=== PATIENT | male | born 1975 ===

== ENCOUNTER → 2017-03-21 07:21 | Outpatient (CLI) | payer OTHER | END | disposition home or self-care (01) | LOC: LAB 07:21 | DX: I11.9 Hypertensive heart disease without heart failure (principal); M62.81 Muscle weakness (generalized); E78.2 Mixed hyperlipidemia; Z12.11 Encounter for screening for malignant neoplasm of colon ==

== ENCOUNTER 2018-06-11 10:57 | Emergency (ER) | payer OTHER ==
[~2018-06-11] VITALS: Ht 190.5 cm; Wt 104.3 kg
[2018-06-11] MEDS ORDERED: COZAAR50 MG (11:41)
[2018-06-11] MEDS ORDERED: TOPROL XL25 M1 (11:42)
== END 2018-06-11 15:41 | disposition home or self-care (01) ==
LOC: ER 10:57
DX: S40.012A Contusion of left shoulder, initial encounter (principal); S80.02XA Contusion of left knee, initial encounter; V49.9XXA Car occupant (driver) (passenger) injured in unspecified traffic accident, initial encounter; Y93.89 Activity, other specified; Y92.488 Other paved roadways as the place of occurrence of the external cause; Y99.8 Other external cause status